=== PATIENT | male | born 1965 | race Caucasian/White ===

== ENCOUNTER 2020-02-09 07:23 | Emergency (ER) | payer OTHER ==
[2020-02-09 09:04] LABS: ABSOLUTE BASOPHILS # (AUTO) 0.1 10^3/uL (0.0-0.2); ABSOLUTE EOSINOPHILS # (AUTO) 0.1 10^3/uL (0.0-0.6); ABSOLUTE LYMPHOCYTES (AUTO) 1.9 10^3/uL (0.5-4.7); ABSOLUTE MONOCYTES (AUTO) 0.9 10^3/uL (0.1-1.4); ABSOLUTE NEUT (AUTO) 5.6 10^3/uL (1.7-8.2); BASOPHILS % (AUTO) 0.7 % (0-2); EOSINOPHILS % (AUTO) 0.9 % (0-6); HEMATOCRIT 45.1 % (37.9-51.0); HEMOGLOBIN 15.7 g/dL (13.5-17.0); LYMPHOCYTES % (AUTO) 22.9 % (13-45); MEAN CORPUSCULAR HEMOGLOBIN 32.8 pg (27.0-33.4); MEAN CORPUSCULAR HGB CONC 34.9 g/dL (32.0-36.0); MEAN CORPUSCULAR VOLUME 94 fl (80-97); MONOCYTES % (AUTO) 10.2 % (3-13); PLATELET COUNT 260 10^3/uL (150-450); RED BLOOD COUNT 4.79 10^6/uL (4.35-5.55); SEGMENTED NEUTROPHILS % (AUTO) 65.3 % (42-78); TOTAL CELLS COUNTED % (AUTO) 100 %; WHITE BLOOD COUNT 8.5 10^3/uL (4.0-10.5)
[2020-02-09 09:25] LABS: CARBON DIOXIDE 34 mmol/L (22-30); CHLORIDE 96 mmol/L (98-107)
[2020-02-09 09:38] LABS: ALBUMIN 4.6 g/dL (3.5-5.0); ALKALINE PHOSPHATASE 67 U/L (38-126); ANION GAP 6 (5-19); ASPARTATE AMINO TRANSFERASE 26 U/L (17-59); BILIRUBIN,DIRECT 0.1 mg/dL (0.0-0.4); BILIRUBIN,TOTAL 0.7 mg/dL (0.2-1.3); BLOOD UREA NITROGEN 18 mg/dL (7-20); CALCIUM 9.6 mg/dL (8.4-10.2); GLUCOSE 108 mg/dL (75-110); POTASSIUM 4.2 mmol/L (3.6-5.0); TOTAL PROTEIN 7.8 g/dL (6.3-8.2)
[2020-02-09] MEDS ORDERED: NORMAL SALINE 1000 ML 1,000 ML IV ONE (10:01)
[2020-02-09] MEDS ORDERED: ONDANSETRON HCL INJ/PF 4 MG/2 ML SDV IV ONE (10:01)
[2020-02-09] MEDS ORDERED: MORPHINE SULFATE 10 MG/ML INJ IV ONE (10:02)
--- NOTE | 2020-02-09 10:30 | RADIOLOGY REPORT (SQ) ---
EXAM DESCRIPTION: CT ABD/PELVIS WITH IV ONLY IMAGES COMPLETED DATE/TIME: 02/09/2020 10:17 am REASON FOR STUDY: abd pain COMPARISON: None. TECHNIQUE: CT scan of the abdomen and pelvis performed using helical scanning technique with dynamic intravenous contrast injection. No oral contrast. Images reviewed with lung, soft tissue, and bone windows. Reconstructed coronal and sagittal MPR images reviewed. Delayed images for evaluation of the urinary system also acquired. All images stored on PACS. All CT scanners at this facility use dose modulation, iterative reconstruction, and/or weight based d osing when appropriate to reduce radiation dose to as low as reasonably achievable (ALARA). [facility]: Dose Right [facility]: CareDose [facility]: Dose Right [facility]: Teradose 4D [facility]: Intentiva CONTRAST TYPE AND DOSE: contrast/concentration: Isovue 350.00 mmol/ml; Total Contrast Delivered: 62. 0 ml; Total Saline Delivered: 65.0 ml RENAL FUNCTION: BUN 18 creatinine 0.69. RADIATION DOSE: CT Rad equipment meets quality standard of care and radiation dose reduction techniq ues were employed. CTDIvol: 4.8 mGy. DLP: 498 mGy-cm.. LIMITATIONS: None. FINDINGS: LOWER CHEST: No significant findings. Calcified granuloma in the right lung. No nodules or infiltrates. LIVER: Normal size. No masses. No dilated ducts. SPLEEN: Normal size. No focal lesions. PANCREAS: No masses. No significant calcifications. No adjacent inflammation or peripancreatic fluid collections. Pancreatic duct not dilated. GALLBLADDER: No identified stones by CT criteria. No inflammatory changes to suggest cholecystitis. ADRENAL GLANDS: No significant masses or asymmetry. RIGHT KIDNEY AND URETER: No solid masses. Tiny lower pole calyceal calculus. No hydronephrosis or hydroureter. LEFT KIDNEY AND URETER: Cortical cysts. No solid masses. Calyceal calculi in the lower pole, the l argest measuring 7 mm. No hydronephrosis or hydroureter. AORTA AND VESSELS: No aneurysm. No dissection. Renal arteries, SMA, celiac without stenosis. RETROPERITONEUM: No retroperitoneal adenopathy, hemorrhage or masses. BOWEL AND PERITONEAL CAVITY: Contrast material in the colon. No masses or inflammatory changes. No f ree fluid or peritoneal masses. APPENDIX: Normal. PELVIS: No mass. No free fluid. Normal bladder. ABDOMINAL WALL: No masses. No hernias. BONES: No significant or acute findings. OTHER: No other significant finding. IMPRESSION: 1. RENAL CALCULI. NO URETERAL CALCULI OR OBSTRUCTION. 2. CORTICAL CYSTS IN THE LEFT KIDNEY. CONTRAST MATERIAL PRESENT IN THE COLON. NO OTHER SIGNIFICANT OR ACUTE FINDING IN THE ABDOMEN OR PELVIS ON CT SCAN WITH IV CONTRAST. TECHNICAL DOCUMENTATION: JOB ID: [id number] Quality ID # [id number]: Final reports with documentation of one or more dose reduction techniques (e.g., Au tomated exposure control, adjustment of the mA and/or kV according to patient size, use of iterative reconstruction technique) 2010 [employer]- All Rights Reserved Reading location - IP/workstation name: [email or web address]
[2020-02-09 11:29] LABS: APPEARANCE,URINE CLEAR; BILIRUBIN,URINE NEGATIVE (NEGATIVE); COLOR,URINE STRAW; GLUCOSE, URINE NEGATIVE (NEGATIVE); KETONES,URINE TRACE mg/dL (NEGATIVE); LEUKOCYTE ESTERASE,URINE SMALL (NEGATIVE); NITRITE,URINE NEGATIVE (NEGATIVE); PROTEIN,URINE NEGATIVE (NEGATIVE); UROBILINOGEN,URINE NEGATIVE mg/dL (<2.0)
[2020-02-09 11:31] LABS: URINE SPECIFIC GRAVITY > 1.060
--- NOTE | 2020-02-09 11:56 | ER Document Report ---
ED General - General Chief Complaint: Upper Abdominal Pain Stated Complaint: ABDOMINAL PAIN,VOMITING,CHILLS Time Seen by Provider: 02/09/20 09:11 Mode of Arrival: Ambulatory Information source: Patient - HPI Notes: Patient presents with abdominal pain and vomiting. Patient states that for about 5 days he has had epigastric pain with vomiting. He states he has had a hard time keeping down both liquids and solids. No significant diarrhea. The pain is been crampy and intermittent. Is been moderate in intensity. Nothing makes it better or worse. He states he has had no known Covid virus exposures that he knows of. He states that in the past he has had a couple of surgeries on his scrotum and he has noticed a cyst in that area but does not believe that is related to his symptoms. - Related Data Allergies/Adverse Reactions: No Known Allergies Allergy (Verified 02/09/20 08:25) Past Medical History - General Information source: Patient - Social History Smoking Status: Current Every Day Smoker Chew tobacco use (# tins/day): No Frequency of alcohol use: Rare Drug Abuse: None Family History: Reviewed & Not Pertinent Review of Systems - Review of Systems Constitutional: denies: Chills, Fever Cardiovascular: denies: Chest pain, Palpitations Respiratory: denies: Cough, Short of breath -: Yes All other systems reviewed and negative Physical Exam - Vital signs Vitals: Temp Pulse Resp BP Pulse Ox 97.7 F 106 H 16 121/93 H 97 02/08/20 07:40 02/08/20 07:40 02/08/20 07:40 02/08/20 07:40 02/08/20 07:40 Interpretation: Tachypneic - General General appearance: Appears well, Alert - HEENT Head: Normocephalic, Atraumatic Eyes: Normal Pupils: PERRL - Respiratory Respiratory status: No respiratory distress Chest status: Nontender Breath sounds: Normal Chest palpation: Normal - Cardiovascular Rhythm: Regular Heart sounds: Normal auscultation Murmur: No - Abdominal Inspection: Normal Distension: No distension Bowel sounds: Normal Tenderness: Tender - Mild epigastric tenderness to palpation. Organomegaly: No organomegaly - Genitourinary Inspection: Normal Tenderness: Nontender Scrotum: Other - There is a small mobile nontender cyst adjacent to the testicle on the right. - Back Back: Normal, Nontender - Extremities General upper extremity: Normal inspection, Nontender, Normal color, Normal ROM, Normal temperature General lower extremity: Normal inspection, Nontender, Normal color, Normal ROM, Normal temperature, Normal weight bearing. No: Villa's sign - Neurological Neuro grossly intact: Yes Cognition: Normal Orientation: AAOx4 Keren Coma Scale Eye Opening: Spontaneous [place] Coma Scale Verbal: Oriented [place] Coma Scale Motor: Obeys Commands Keren Coma Scale Total: 15 Speech: Normal Motor strength normal: LUE, RUE, LLE, RLE Sensory: Normal - Psychological Associated symptoms: Normal affect, Normal mood - Skin Skin Temperature: Warm Skin Moisture: Dry Skin Color: Normal Course - Re-evaluation Re-evalutation: 02/09/20 11:52 Patient presents with epigastric pain. No evidence of cardiac disease. No evidence of pancreatitis or gallbladder disease. CT scan is unremarkable as are essentially laboratories. Vitals are now stable after liter fluids. I do not see any evidence of patient's scrotal cyst is related to his symptoms. However I will refer him to urology for further follow-up of this. Patient has been tested for Covid virus and instructed to quarantine until the results come back. That remains a distinct possibility at this time. Patient's presentation does seem most consistent with some type of viral gastroenterology. - Vital Signs Vital signs: Temp Pulse Resp BP Pulse Ox 97.7 F 91 18 134/74 H 98 02/09/20 08:37 02/09/20 08:37 02/09/20 08:37 02/09/20 08:37 02/09/20 08:37 - Laboratory Results Result Diagrams: 02/09/20 08:50 02/09/20 08:50 Laboratory Results Interpreted: 02/09/20 02/09/20 08:50 11:07 Sodium 135.6 L Chloride 96 L Carbon Dioxide 34 H Urine Ketones TRACE H Ur Leukocyte Esterase SMALL H Critical Laboratory Results Reviewed: No Critical Results - Radiology Results Critical Radiology Results Reviewed: No Critical Results - EKG Interpretation by Me EKG shows normal: Sinus rhythm Rate: Normal - 73 Rhythm: NSR Ayden/QRS: No: Right axis deviation, Left axis deviation Discharge - Discharge Clinical Impression: Viral gastroenteritis, Person under investigation for COVID-19, Scrotal cyst Condition: Stable Disposition: HOME, SELF-CARE Instructions: Intravenous (IV) Fluids ([facility]), Oral Narcotic Medication ([facility]), Clear Liquid Diet ([facility]), Gastroenteritis (adult) ([facility]), Antinausea Medication ([facility]), Abdominal Pain ([facility]), Vomiting ([facility]), COVID-19 Guidance for Persons Under Investigation Additional Instructions: Please call a urologist as soon as possible to arrange follow-up Prescriptions: Hydrocodone/Acetaminophen [Cypress 5-325 mg Tablet] 1 tab PO Q6 PRN 3 Days #12 tablet PRN Reason: Ondansetron [Zofran Odt 4 mg Tablet] 1 - 2 tab PO Q4H PRN #15 tab.rapdis PRN Reason: For Nausea/Vomiting Forms: Return to Work Referrals: YOLIS ROMERO MD [NO LOCAL MD] - Follow up in 1 week
[2020-02-09 12:05] VITALS: BP 104/81
--- NOTE | 2020-02-09 12:17 | EKG REPORT ---
SEVERITY:- BORDERLINE ECG - SINUS RHYTHM PROBABLE LEFT ATRIAL ABNORMALITY : Confirmed by: Nav Decker MD 09-Feb-2020 12:16:51
== END 2020-02-09 12:03 | disposition home or self-care (01) ==
LOC: ER 07:23
DX: A08.4 Viral intestinal infection, unspecified (principal); L72.9 Follicular cyst of the skin and subcutaneous tissue, unspecified; R10.10 Upper abdominal pain, unspecified; R11.10 Vomiting, unspecified; F17.200 Nicotine dependence, unspecified, uncomplicated; Z20.828 Contact with and (suspected) exposure to other viral communicable diseases
CPT/HCPCS: 93005; 99285; 96361; 96374; 96375; 36415; 83690; 85025; 87635; 80053; 81001; 84484; 74177; 93010; J2270; J2405; J7030; C9803

== ENCOUNTER 2020-02-13 10:51 | Emergency (ER) | payer OTHER ==
[2020-02-13] MEDS ORDERED: ONDANSETRON 4 MG TAB.RAPDIS PO ONE (12:26)
--- NOTE | 2020-02-13 12:28 | ER Document Report ---
ED Medical Screen (RME) - General Chief Complaint: Vomiting Stated Complaint: VOMITING,CHILLS,ABDOMINAL PAIN Time Seen by Provider: 02/13/20 12:18 Mode of Arrival: Ambulatory Information source: Patient Notes: 54-year-old male presented to ED for complaint of nausea and vomiting. He states he started with the nausea vomiting a cough on the . He states he did not come in until Saturday at which time they did blood urine CT and a Covid test and start told him 2 days later the Covid test was negative. He states the doctor at the time of the visit told me look like he had the norovirus and it should be better in 10 days. He states he actually started getting sick on the and it should be gone but he still having the nausea and vomiting but no diarrhea. 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 He does smoke half pack a day and drinks monthly does not use any illicit drugs. H e states he is still feeling horrible. I have greeted and performed a rapid initial assessment of this patient. A comprehensive ED assessment and evaluation of the patient, analysis of test re sults and completion of medical decision making process will be conducted by an additional ED providers. - Related Data Allergies/Adverse Reactions: No Known Allergies Allergy (Verified 02/09/20 08:25) Physical Exam - Vital signs Vitals: Temp Pulse Resp BP Pulse Ox 98.3 F 83 24 H 146/93 H 98 02/13/20 11:58 02/13/20 11:58 02/13/20 11:58 02/13/20 11:58 02/13/20 11:58 Course - Vital Signs Vital signs: Temp Pulse Resp BP Pulse Ox 98.3 F 83 24 H 146/93 H 98 02/13/20 11:58 02/13/20 11:58 02/13/20 11:58 02/13/20 11:58 02/13/20 11:58
[2020-02-13 13:53] LABS: ABSOLUTE BASOPHILS # (AUTO) 0.1 10^3/uL (0.0-0.2); ABSOLUTE LYMPHOCYTES (AUTO) 1.4 10^3/uL (0.5-4.7); ABSOLUTE MONOCYTES (AUTO) 0.4 10^3/uL (0.1-1.4); ABSOLUTE NEUT (AUTO) 9.4 10^3/uL (1.7-8.2); BASOPHILS % (AUTO) 0.5 % (0-2); EOSINOPHILS % (AUTO) 0.2 % (0-6); HEMATOCRIT 46.9 % (37.9-51.0); HEMOGLOBIN 15.8 g/dL (13.5-17.0); LYMPHOCYTES % (AUTO) 12.6 % (13-45); MEAN CORPUSCULAR HEMOGLOBIN 31.8 pg (27.0-33.4); MEAN CORPUSCULAR HGB CONC 33.8 g/dL (32.0-36.0); MEAN CORPUSCULAR VOLUME 94 fl (80-97); MONOCYTES % (AUTO) 3.6 % (3-13); PLATELET COUNT 298 10^3/uL (150-450); RED BLOOD COUNT 4.98 10^6/uL (4.35-5.55); SEGMENTED NEUTROPHILS % (AUTO) 83.1 % (42-78); TOTAL CELLS COUNTED % (AUTO) 100 %; WHITE BLOOD COUNT 11.4 10^3/uL (4.0-10.5)
--- NOTE | 2020-02-13 13:57 | RADIOLOGY REPORT (SQ) ---
EXAM DESCRIPTION: CHEST SINGLE VIEW IMAGES COMPLETED DATE/TIME: 02/13/2020 12:18 pm REASON FOR STUDY: Nausea and vomiting COMPARISON: None. EXAM PARAMETERS: NUMBER OF VIEWS: One view. TECHNIQUE: Single frontal radiographic view of the chest acquired. RADIATION DOSE: NA LIMITATIONS: None. FINDINGS: LUNGS AND PLEURA: Lungs are hyperinflated. Calcified granuloma peripheral right lower lo be. No opacities, masses or pneumothorax. No pleural effusion. MEDIASTINUM AND HILAR STRUCTURES: No masses. Contour normal. HEART AND VASCULAR STRUCTURES: Heart normal in size. Normal vasculature. BONES: No acute findings. HARDWARE: None in the chest. OTHER: No other significant finding. IMPRESSION: No acute cardiopulmonary disease. Hyperinflated lungs which can be seen with obstructiv e lung disease. TECHNICAL DOCUMENTATION: JOB ID: [id number] 2010 [employer]- All Rights Reserved Reading location - IP/workstation name: [email or web address]
[2020-02-13 14:20] LABS: ALBUMIN 4.9 g/dL (3.5-5.0); ALKALINE PHOSPHATASE 67 U/L (38-126); ANION GAP 10 (5-19); ASPARTATE AMINO TRANSFERASE 23 U/L (17-59); BILIRUBIN,DIRECT 0.2 mg/dL (0.0-0.4); BILIRUBIN,TOTAL 0.8 mg/dL (0.2-1.3); BLOOD UREA NITROGEN 17 mg/dL (7-20); CALCIUM 9.8 mg/dL (8.4-10.2); CARBON DIOXIDE 31 mmol/L (22-30); CHLORIDE 96 mmol/L (98-107); GLUCOSE 99 mg/dL (75-110); POTASSIUM 4.1 mmol/L (3.6-5.0); TOTAL PROTEIN 8.1 g/dL (6.3-8.2)
[2020-02-13 14:22] LABS: AMORPHOUS SEDIMENT,URINE TRACE /HPF; APPEARANCE,URINE CLOUDY; BILIRUBIN,URINE NEGATIVE (NEGATIVE); COLOR,URINE YELLOW; GLUCOSE, URINE NEGATIVE (NEGATIVE); KETONES,URINE 20 mg/dL (NEGATIVE); LEUKOCYTE ESTERASE,URINE TRACE (NEGATIVE); NITRITE,URINE NEGATIVE (NEGATIVE); PROTEIN,URINE NEGATIVE (NEGATIVE); URINE SPECIFIC GRAVITY 1.015; UROBILINOGEN,URINE NEGATIVE mg/dL (<2.0)
[2020-02-13] MEDS ORDERED: NORMAL SALINE 1000 ML 1,000 ML IV ONE (15:34)
[2020-02-13] MEDS ORDERED: METOCLOPRAMIDE HCL ORAL SOLN 10 MG/10 ML UDCUP PO ONE (15:36)
[2020-02-13] MEDS ORDERED: LIDOCAINE 2% VISCOUS SOLN 15 ML UDCUP PO ONE (15:36)
[2020-02-13] MEDS ORDERED: MAG HYDROX/AL HYDROX/SIMETH SUSP 30 ML UDCUP PO ONE (15:36)
[2020-02-13] MEDS ORDERED: CEFTRIAXONE 1 GM/D5W RTU 1 GM/50 ML RTUPB IV ONE (15:37)
[2020-02-13] MEDS ORDERED: ACETAMINOPHEN 1,000 MG/100 ML RTUPB IV ONE (15:38)
--- NOTE | 2020-02-13 18:12 | ER Document Report ---
Entered by OKSANA RUDD SCRIBE 02/13/20 1453 Acting as scribe for:ISELA CHERY MD ED General - General Chief Complaint: Vomiting Stated Complaint: VOMITING,CHILLS,ABDOMINAL PAIN Time Seen by Provider: 02/13/20 12:18 Mode of Arrival: Ambulatory Information source: Patient Notes: This 54 year old male patient presents to the ED today with complaints epigastric pain with associated nausea, vomiting, and decreased PO intake since 02/03. Patient states that he was seen here on 02/08 with these complaints and had a CT of his abdomen/pelvis that was unremarkable; he was also tested for COVID and received negative results on 02/10. He mentions an x1 episode of diarrhea on 01/05 and that he hasn't had a bowel movement since then until this morning; the stool was green/dark brown in color and soft. He notes taking Pepto Bismol for his symptoms without resolve. He also notes subjective fever, sore throat, pain with swallowing, and unintentional x11 lb weight loss since symptom onset. 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, scrotum Past Surgical History: Reports: Other - squamous carcinomas removal x4 on scrotum, cyst removal in groin region Review of Systems - Review of Systems Constitutional: See HPI, Fever, Weight loss EENT: See HPI, Throat pain Cardiovascular: No symptoms reported Respiratory: No symptoms reported Gastrointestinal: See HPI, Abdominal pain, Diarrhea, Nausea, Vomiting, Constipation, Poor appetite, Poor fluid intake Genitourinary: No symptoms reported Male Genitourinary: No symptoms reported Musculoskeletal: No symptoms reported Skin: No symptoms reported Hematologic/Lymphatic: No symptoms reported Neurological/Psychological: No symptoms reported -: Yes All other systems reviewed and negative Physical Exam - Vital signs Vitals: Temp Pulse Resp BP Pulse Ox 98.3 F 83 24 H 146/93 H 98 02/13/20 11:58 02/13/20 11:58 02/13/20 11:58 02/13/20 11:58 02/13/20 11:58 - General General appearance: Alert In distress: None - HEENT Head: Normocephalic, Atraumatic Eyes: Normal Pupils: PERRL Mucous membranes: Dry Pharynx: Normal, Erythema. No: Exudate Neck: Normal, Supple. No: Lymphadenopathy - No cervical adenopathy - Respiratory Respiratory status: No respiratory distress Chest status: Nontender Breath sounds: Normal Chest palpation: Normal - Cardiovascular Rhythm: Regular Heart sounds: Normal auscultation, S1 appreciated, S2 appreciated Murmur: No Friction rub: No Gallop: None auscultated - Abdominal Inspection: Normal Distension: No distension Bowel sounds: Normal Tenderness: Nontender - Abdomen soft Organomegaly: No organomegaly - Back Back: Normal, Nontender - Extremities General upper extremity: Normal inspection General lower extremity: Normal inspection. No: Edema - Neurological Neuro grossly intact: Yes Orientation: AAOx4 Keren Coma Scale Eye Opening: Spontaneous Keren Coma Scale Verbal: Oriented Keren Coma Scale Motor: Obeys Commands Keren Coma Scale Total: 15 - Psychological Associated symptoms: Normal affect, Normal mood - Skin Skin Temperature: Warm Skin Moisture: Dry Skin Color: Normal Course - Re-evaluation Re-evalutation: Patient resting comfortable states the GI cocktail and IV fluids and IV antibiotics has helped. Patient was given IV fluids to from hydration purposes and also IV Rocephin due to a sore throat with redness on exam with no exudate strep negative on exam. Also patient was given a GI cocktail which has improved his epigastric discomfort. - Vital Signs Vital signs: Temp Pulse Resp BP Pulse Ox 98.3 F 83 24 H 146/93 H 98 02/13/20 11:58 02/13/20 11:58 02/13/20 11:58 02/13/20 11:58 02/13/20 11:58 02/13/20 18:05 Vital signs are stable blood pressure 146/93 afebrile - Laboratory Results Result Diagrams: 02/13/20 13:10 02/13/20 13:10 Laboratory Results Interpreted: 02/13/20 02/13/20 02/13/20 12:55 13:10 13:10 WBC 11.4 H Lymph % (Auto) 12.6 L Absolute Neuts (auto) 9.4 H Seg Neutrophils % 83.1 H Chloride 96 L Carbon Dioxide 31 H Urine Ketones 20 H Ur Leukocyte Esterase TRACE H Urine Ascorbic Acid 20 H 02/13/20 18:05 Laboratories unremarkable for any critical lab values. Patient's white blood cell count is 11.4 slightly elevated from 1 week ago. Critical Laboratory Results Reviewed: No Critical Results - Radiology Results Radiology Results Interpreted: 02/13/20 18:07 Chest X-Ray 02/13/20 12:25 IMPRESSION: No acute cardiopulmonary disease. Hyperinflated lungs which can be seen with obstructive lung disease. Chest x-ray shows no acute process hyperinflated lungs consistent with COPD. Critical Radiology Results Reviewed: No Critical Results Discharge - Discharge Clinical Impression: Acute pharyngitis, Epigastric abdominal pain, GERD (gastroesophageal reflux disease) Condition: Stable Disposition: HOME, SELF-CARE Instructions: Antinausea Medication ([facility]) Additional Instructions: Sore Throat Sore throats may be caused by viruses, bacteria, or fungi. Most are due to a virus, and must get better on their own. Bacterial sore throats, particularly those due to "strep," need treatment with antibiotics. If an antibiotic is prescribed, be sure to take the medication for a full 10 days. Failure to take the antibiotic can result in complications such as rheumatic fever. Sometimes, an injection of antibiotics is given instead of pills or liquid. This single "shot" is equal in effectiveness to the oral medication. To relieve symptoms, take acetaminophen for pain. Sip clear liquids frequently, or eat popsicles or ice chips. Anesthetic sprays or lozenges may help. Make sure the air in the room is not too dry. Avoid using decongestants or antihistamines. Call the doctor if there is no improvement in two days, or if you have difficulty breathing, increasing throat pain, high fever, rash, or frequent vomiting. Nausea or Vomiting, Nonspecific Vomiting (or nausea without vomiting) can be caused by many different problems. Of course, it can mean that something's wrong with the stomach, such as "stomach flu," ulcers, or inflammation. But it can also be a symptom of a problem that has nothing to do with the stomach or intestines. Vomiting is common with severe headaches, earaches, and tonsillitis. We see it with pneumonia or heart attacks. Drugs can cause nausea. Many abdominal problems cause vomiting; for example, gallstones, kidney stones, pancreatitis, and intestinal obstruction (blocked bowels). In most cases, curing the vomiting depends on fixing the problem that caused it. For temporary relief, we may use an anti-nausea medicine. For home use, we can prescribe suppositories, chewable pills, pills that dissolve in the mouth, or liquid anti-nausea drugs. If the vomiting seems to be caused by a problem in the stomach, acid-suppressing drugs may be prescribed as well. It's important to avoid dehydration. Sip clear liquids. Take increasing amounts of fluid over the first 24 hours. Then start small amounts of bland foods (such as dry toast, applesauce, mashed potato). Avoid aspirin, tobacco, and alcohol. Gradually resume your usual diet. If the vomiting worsens, if the problem that's making you vomit worsens, or if there's evidence of bleeding in the stomach (such as black, tarry stool, blo rhea or black vomit, or lightheadedness), you should return immediately. Call your doctor if you aren't improved in 24 to 36 hours. Reflux Disease (GERD) Gastro-Esophageal Reflux Disease (GERD) is caused by stomach acid refluxing back up into the esophagus. The valve at the end of the esophagus may be weak. This is common in persons with a hiatal hernia. GERD symptoms can include indigestion, chest pain, heartburn, or food "sticking." Certain foods, alcohol, and aspirin can make GERD worse. Treatment depends on the severity. Usually, antacids or acid-suppressing medicines are used. When the esophagus is acutely inflamed, the physician will often prescribe membrane-protective drugs such as Carafate. Some patients benefit from medication such as Reglan that tightens the valve at the top of the stomach. Avoid those foods that bring on your symptoms. For many people, these foods are coffee, chocolate, onions, garlic, and carbonated drinks. Don't use alcohol, aspirin, caffeine, or tobacco. Don't eat late at night -- within 4 hours of bedtime. Don't over-eat. If necessary, elevate the head of your bed about 4 inches so that stomach acid will not roll up into your esophagus. Call the doctor if you develop severe chest pain, inability to swallow fluids, fever, or worsening symptoms. Prescriptions: Ondansetron [Zofran Odt 4 mg Tablet] 1 - 2 tab PO Q4HP PRN #20 tab.rapdis PRN Reason: Amoxicillin 875 mg PO BID #20 tablet Omeprazole 40 mg PO DAILY #30 capsule.dr Grewal personally performed the services described in the documentation, reviewed and edited the documentation which was dictated to the scribe in my presence, and it accurately records my words and actions.
[2020-02-13 18:49] VITALS: BP 124/81
== END 2020-02-13 18:52 | disposition home or self-care (01) ==
LOC: ER 10:51
DX: J02.9 Acute pharyngitis, unspecified (principal); K21.9 Gastro-esophageal reflux disease without esophagitis; R10.13 Epigastric pain; R11.10 Vomiting, unspecified
CPT/HCPCS: 99284; 96365; 96368; 36415; 87040; 87070; 87086; 87880; 83690; 85025; 87088; 80053; 81001; 87186; 71045; S0119; J3490; J7030; J0696; J0131